=== PATIENT | male | born 1995 | race Caucasian/White ===

== ENCOUNTER 2017-04-25 07:05 | Emergency (ER) | payer OTHER ==
[2017-04-25 07:24] VITALS: BP 133/77
[2017-04-25] MEDS ORDERED: Ipratropium 0.5MG/2.5ML NEB* 0.5 MG/2.5 ML NEB.SOLN INH ONE (07:33)
[2017-04-25] MEDS ORDERED: Albuterol 2.5 MG/3 ML NEB.SOL* (0.083%) INH ONE (07:33)
[2017-04-25] MEDS ORDERED: methylPREDNISolone 125 MG* 2 ML VIAL IM ONE (07:33)
--- NOTE | 2017-04-25 07:35 | UC ---
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 REPORTS HE IS ALLERGIC TO [employer] AND THIS HAS HAPPENED BEFORE. USED ALBUTEROL INHALER WHICH HELPED FOR ABOUT 15 MINUTES. NO FEVER. - History of Current Complaint Stated Complaint: SOB,COUGH,SORE THROAT Time Seen by Provider: 04/25/17 07:20 Hx Obtained From: Patient Onset/Duration: Gradual Onset, Lasting Days, Still Present Timing: Constant Severity Initially: Mild Severity Currently: Moderate Pain Intensity: 3 Pain Scale Used: 0-10 Numeric Character: Cough: Nonproductive Aggravating Factors: Allergens, Exertion, Deep Breaths Alleviating Factors: Bronchodilator Associated Signs And Symptoms: Positive: Dyspnea, Pleuritic Chest Pain, Wheezing. Negative: Fever, Chills - Allergies/Home Medications Allergies/Adverse Reactions: Allergies Allergy/AdvReac Type Severity Reaction Status Date / Time rodents Allergy Coughing Uncoded 04/25/17 07:25 Home Medications: Home Medications LevoCETirizine TAB (NF) [Xyzal TAB (NF)] 5 mg PO DAILY 04/25/17 [History Confirmed 04/25/17] PMH/Surg Hx/FS Hx/Imm Hx Respiratory History: Asthma - Surgical History Surgical History: None - Social History Alcohol Use: Occasionally Substance Use Type: Marijuana Substance Use Comment - Amount & Last Used: 3 days a week Smoking Status (MU): Never Smoked Tobacco Review of Systems Constitutional: Negative ENT: Sore Throat Respiratory: Shortness Of Breath, Cough Cardiovascular: Negative Gastrointestinal: Negative All Other Systems Reviewed And Are Negative: Yes Physical Exam Triage Information Reviewed: Yes Appearance: No Pain Distress, Well-Nourished Vital Signs: Initial Vital Signs Temp 97.7 F 04/25/17 07:14 Pulse 110 04/25/17 07:14 Resp 18 04/25/17 07:14 BP 133/77 04/25/17 07:14 Pulse Ox 94 04/25/17 07:14 Vital Signs Reviewed: Yes Eyes: Positive: Conjunctiva Clear ENT: Positive: Hearing grossly normal, Pharynx normal, TMs normal Neck: Positive: Supple, Nontender, No Lymphadenopathy Respiratory: Positive: Decreased breath sounds, Wheezing, Other: - PT SITTING HUNCHED FORWARD - INCREASED WOB. ABLE TO SPEAK IN FULL SENTENCES. Cardiovascular: Positive: Tachycardia Abdomen Description: Positive: Soft Musculoskeletal: Positive: No Edema Neurological: Positive: Alert Psychological: Positive: Age Appropriate Behavior Skin: Negative: rashes UC Diagnostic Evaluation - Laboratory O2 Sat by Pulse Oximetry: 94 Re-Evaluation - Re-Evaluation First Eval Re-Evaluation Time: 08:40 - BETTER AFTER SOLUMEDROL 125MG AND DUONEB. O2 SAT 98% . PT APPEARS MUCH MORE COMFORTABLE Change: Improved Respiratory Course/Dx - Differential Dx/Diagnosis Provider Diagnoses: ASTHMA EXACERBATION Discharge - Discharge Plan Condition: Stable Disposition: HOME Prescriptions: Albuterol 2.5MG/3ML (0.083%)* [Ventolin 2.5 MG/3 ML NEB.JASSI*] 2.5 mg INH Q4H PRN #1 box PRN Reason: Wheezing Albuterol HFA INHALER* [Ventolin HFA Inhaler*] 2 puff INH Q4H PRN #1 mdi PRN Reason: Shortness Of Breath Nebulizer [Mini Plus Nebulizer] 1 each MC Q4H PRN #1 each PRN Reason: Wheezing predniSONE TAB* [Deltasone TAB*] 50 mg PO DAILY #5 tab Patient Education Materials: Asthma (ED), Bronchospasm (ED), Wheezing (ED) Referrals: [facility] - Ankit TORRES [Medical Doctor] - If Needed Additional Instructions: CONTINUE YOUR ANTIHISTAMINE DAILY. ALBUTEROL NEEDED. PREDNISONE FOR 5 DAYS. AVOID ALLERGENS UNTIL SYMPTOMS ARE RESOLVED. FOLLOW-UP IF NEEDED. GO TO ER WITHOUT FAIL IF YOU DEVELOP WORSENING SHORTNESS OF BREATH, CHEST PAIN, NAUSEA, SWEATS, DIZZINESS OR ANY OTHER CONCERNING SYMPTOMS.
== END 2017-04-25 09:00 | disposition home or self-care (01) ==
LOC: UCEAST 07:05
DX: J45.901 Unspecified asthma with (acute) exacerbation (principal)
CPT/HCPCS: 87502; 96372; 99202; G0463; J2930; J7644

== ENCOUNTER 2018-01-08 11:47 | Day surgery (SDC) | payer OTHER ==
[~2018-01-08 11:47] MED LIST: Buffered Lidocaine 0.9% SYRIN* 5 ML/SYR SYRINGE INTRADERM ONE; Naloxone* 0.4 MG/ML 1 ML VIAL IV PRN; Sodium Citrate/Citric Acid* 15 ML UDC ONE; Sodium Citrate/Citric Acid* 15 ML UDC PO ONE
[2018-01-08] MEDS ORDERED: ceFAZolin 2 GM PREMIX in ORs 2 GM/50 ML BAG IVPB ONE (12:02)
[2018-01-08] MEDS ORDERED: Bupivacaine 0.25% SDV* 30 ML ONE (13:02)
[2018-01-08] MEDS ORDERED: Lidocaine 2% PF * 5 ML VIAL ONE (13:34)
[2018-01-08] MEDS ORDERED: fentaNYL* 50 MCG/ML 2 ML VIAL (100 MCG VIAL) ONE (13:34)
[2018-01-08] MEDS ORDERED: Propofol* 10 MG/ML 20 ML BTL IV PUSH ONE (13:34)
[2018-01-08] MEDS ORDERED: Dexamethasone IV* 4 MG/ML 1 ML (4 MG) ONE (13:53)
[2018-01-08 16:39] VITALS: BP 145/92
--- NOTE | 2018-01-09 07:46 | RAD ---
INDICATION: Right thumb proximal phalanx fracture COMPARISONS: January 06, 2018 TECHNIQUE: Fluoroscopy was provided for a surgical procedure. Total fluoroscopy time is: 2 minutes, 35 seconds FINDINGS: Spot images demonstrate fixation of the proximal phalanx of the first digit. IMPRESSION: FLUOROSCOPY WAS PROVIDED FOR A SURGICAL PROCEDURE CPT II Codes: G9500
--- NOTE | 2018-01-09 09:43 | OP ---
DATE OF OPERATION: 01/08/18 - [facility] DATE OF : [birth year] SURGEON: Russ Burnham MD. [employer] SECURITY: ADELAIDE Rincon. An vector control assistant was needed to aid with positioning of the arm and passing the wires. ANESTHESIOLOGIST: Dr. Vail. ANESTHESIA: General. PRE-OP DIAGNOSIS: Right thumb comminuted intraarticular proximal phalanx fracture. POST-OP DIAGNOSIS: Right thumb comminuted intraarticular proximal phalanx fracture. OPERATIVE PROCEDURE: Open reduction and internal fixation of right thumb proximal phalanx comminuted intraarticular intercondylar fracture. INDICATIONS: Mihai had dropped a dumbbell on that finger. There was an intercondylar split, it was displaced as well as the shaft components very displaced. Given the high energy nature of this very unstable fracture, we talked about the risks and benefits. He understands there is a risk of stiffness and a risk of malunion despite surgery, a risk for hardware failure. He wishes to proceed. ESTIMATED BLOOD LOSS: 5 mL. COMPLICATIONS: None. FINDINGS: See above and below. DESCRIPTION OF PROCEDURE: Mihai was seen in the preoperative holding area. The correct site, side, and procedure were identified. We came back to the operating room. The arm was prepped and draped in the usual fashion. A time- out was performed. The arm was exsanguinated with the Esmarch and the tourniquet inflated to 250 mmHg. I brought in the mini C-arm. I noted the articular surface. I attempted to reduce this closed with a percutaneous pointed reduction clamp. It would not reduce. I, therefore, made a curvilinear incision over the dorsum of the thumb. Dissection was carried down and full-thickness flaps were raised off the tendon. I came to the ulnar aspect of the tendon and retracted the tendon radially. There was a natural split in the tendon there and so I utilized that interval. An arthrotomy was performed and direct visualization of the condyles was seen. There was impaction. I used a dental pick to disimpact the fragments and mobilize the fragments. I then was able to reduce the fragment and pass a 0.08 mm K-wire from the Synthe[employer] variable angle handset across the fracture. I then placed another pointed reduction clamp more distally to get compression across the articular surface. I then placed a 1.5 mm lag screw from ulnar to radial to further compress and close down the intercondylar split. This reduced the joint surface very nicely. This was confirmed on both direct visualization, as well as mini fluoroscopy. Next, I came back and I turned my attention to the shaft component. The very distal nature of the fracture made it very difficult to get a plate in place. This is even more so true given the lag screw placed across the condyles. I, therefore, elected to pin the shaft component. I placed two 0.045 K-wires from proximal to distal. I augmented this with a third 0.035 K-wire from distal radial to proximal ulnar. This reduced everything very nicely. A reduction was confirmed on the mini C-arm fluoroscopy. The wires position was confirmed. The wires were bent and clipped and dressed. The wound was irrigated out. The little split in the tendon was closed with a 5-0 Prolene suture. The skin was closed with 4-0 nylon. The wounds and pins were dressed and well padded and a thumb spica splint out of the tip of the thumb was applied. Tourniquet was deflated. The thumb pinked up immediately. He was taken to the recovery room in stable condition. [id number]/[facility] #: [id number] MTDD
== END 2018-01-08 16:40 | disposition home or self-care (01) ==
LOC: OREAST 11:47
PROVIDERS: ATTEND Orthopaedic Surgery Hand Surgery
DX: S62.511A Displaced fracture of proximal phalanx of right thumb, initial encounter for closed fracture (principal); X50.0XXA Overexertion from strenuous movement or load, initial encounter; Y93.B3 Activity, free weights; Y92.39 Other specified sports and athletic area as the place of occurrence of the external cause; J45.909 Unspecified asthma, uncomplicated
CPT/HCPCS: 76000; A9270-GY; C1713; C1776; J0690; J1100; J2704; J3010

== ENCOUNTER 2018-08-13 12:28 | Day surgery (SDC) | payer OTHER ==
[~2018-08-13 12:28] MED LIST changes: +Acetaminophen TAB* 325 MG PO ONE; -Buffered Lidocaine 0.9% SYRIN* 5 ML/SYR SYRINGE INTRADERM ONE; +Buffered Lidocaine 1% SYRIN* 1 ML/SYRINGE INTRADERM ONE; +Gabapentin CAP(*) 300 MG PO ONE; +Lactated Ringers 1000 ML Bag* 1,000 ML IV SCH; -Naloxone* 0.4 MG/ML 1 ML VIAL IV PRN; -Sodium Citrate/Citric Acid* 15 ML UDC ONE; -Sodium Citrate/Citric Acid* 15 ML UDC PO ONE
[2018-08-13] MEDS ORDERED: Bupivacaine 0.25% SDV PF* 10 ML VIAL INJ ONE ×2 (14:29→15:17)
[2018-08-13 16:26] VITALS: BP 140/84
--- NOTE | 2018-08-13 21:27 | OP ---
DATE OF OPERATION: 08/13/[address] [facility] DATE OF : [birth year] SURGEON: Russ Burnham MD. DEPUTY SHERIFF CUSTODY: ADELAIDE Holland. ANESTHESIOLOGIST: None. ANESTHESIA: Local with digital block with 0.25% plain Marcaine. PRE-OP DIAGNOSIS: Symptomatic right thumb retained screw. POST-OP DIAGNOSIS: Symptomatic right thumb retained screw. OPERATIVE PROCEDURE: Removal of deep screw, right thumb. INDICATIONS: Mihai had fracture fixation some time back. He has a screw in place; it is bothering him. We had talked about the options; he wanted to have it removed. ESTIMATED BLOOD LOSS: 2 mL. COMPLICATIONS: None. FINDINGS: See above and below. DESCRIPTION OF PROCEDURE: Mihai was seen in the preoperative holding area. We came back to the operating room. We had cleaned the area. We had a time-out. A digital block with 0.25% plain Marcaine was placed. The arm was then prepped and draped in the usual fashion and time-out was performed. I placed a finger tourniquet on the thumb. I marked out where the head of the screw was on mini C-arm fluoroscopy. I then made a 3 to 4 mm longitudinal incision overlying the screw head. I bluntly spread down with the scissors. I placed a couple of small narrow 2-prong skin hooks, elevated with tips of the scissors and then I was able to engage the screw-trailer truck driver into the screw head and the screw came out in 1 piece uneventfully. I then took some final fluoroscopic imaging, mini C-arm fluoroscopic imaging, everything was looking good. He had excellent thumb motion. A soft dressing was applied on the thumb and the tourniquet was removed. The thumb pinked up immediately. He was taken to the recovery room in stable condition. [id number]/[facility] #: [id number] [facility]ITAL[facility]gor
== END 2018-08-13 16:06 | disposition home or self-care (01) ==
LOC: OREAST 12:28
PROVIDERS: ATTEND Orthopaedic Surgery Hand Surgery
DX: T84.84XA Pain due to internal orthopedic prosthetic devices, implants and grafts, initial encounter (principal); Y83.1 Surgical operation with implant of artificial internal device as the cause of abnormal reaction of the patient, or of later complication, without mention of misadventure at the time of the procedure; S62.511S Displaced fracture of proximal phalanx of right thumb, sequela; X58.XXXS Exposure to other specified factors, sequela; Y92.9 Unspecified place or not applicable
CPT/HCPCS: 76000; 88300; J3490